=== PATIENT | female | born 1950 | race Caucasian/White ===

== ENCOUNTER 2017-05-10 07:24 | Day surgery (SDC) | payer OTHER, BC ==
[2017-05-05 10:32] VITALS: BMI 30.9
[2017-05-10] MEDS ORDERED: PROPOFOL 20 ML ONE ×2 (07:29)
[2017-05-10] MEDS ORDERED: LIDOCAINE HCL/PF 2% SDV 5ML VIAL ONE (07:43)
[2017-05-10 09:00] VITALS: TEMP 98.1
[2017-05-10 09:22] VITALS: BP 122/67; PULSE 78
== END 2017-05-10 09:28 | disposition home or self-care (01) ==
LOC: FASU-ENDO 07:24
PROVIDERS: ATTEND Internal Medicine Gastroenterology
PROC: 0DJD8ZZ Inspection of Lower Intestinal Tract, Via Natural or Artificial Opening Endoscopic (ICD-10-PCS; principal; 2017-05-10 08:25)
DX: Z12.11 Encounter for screening for malignant neoplasm of colon (principal)